=== PATIENT | male | born 1985 | race Caucasian/White ===

== ENCOUNTER 2017-03-11 04:52 | Emergency (ER) | payer OTHER ==
[~2017-03-11] VITALS: Ht 170.2 cm; Wt 66.0 kg
[2017-03-11 05:00] VITALS: BP 142/100; PULSE 123; RESP 18; TEMP 98.3; O2SAT 98
--- NOTE | 2017-03-11 05:18 | PD ---
HPI Chief Complaint: Medical Clearance Time Seen by Provider: 05:10 Travel History International Travel<30 days: No Contact w/Intl Traveler<30days: No Traveled to known affect area: No History of Present Illness HPI The patient is a 31-year-old male who presents to the emergency department via police as a Jorge A's act. The patient states he was at home with the incident port [place], [place], earlier today drinking alcohol. The patient then went to [facility] across the street and was drinking white Russians. The patient then apparently blacked out and was found intoxicated and sleeping outside. The patient initially told police that he thought he was in [place], [place]. The patient states he was in [place], [place] 3 days ago. He is currently staying with family in the local area. He denies any physical complaints. He denies any illicit drug use. Symptoms are mild, exacerbated after drinking alcohol, and there are no current alleviating factors. PFSH Past Medical History Medical History: Denies Significant Hx Diminished Hearing: No Tetanus Vaccination: Unknown Influenza Vaccination: No Past Surgical History Surgical History: No Previous Surgery Social History Alcohol Use: Yes (OCCASSIONALLY) Tobacco Use: Yes (1 PPD) Substance Use: No (HX MARIJUANA) Allergies-Medications (Allergen,Severity, Reaction): Coded Allergies: No Known Allergies (Verified , 03/11/17) Reported Meds & Prescriptions Reported Meds & Active Scripts Active No Active Prescriptions or Reported Medications Review of Systems Except as stated in HPI: all other systems reviewed are Neg Psychiatric: Positive: Substance Abuse (alcohol intoxication tonight) Physical Exam Narrative GENERAL: Awake, alert, nontoxic-appearing 31-year-old male appears his stated age and is in no acute respiratory distress. SKIN: Focused skin assessment warm/dry. HEAD: Atraumatic. Normocephalic. EYES: Pupils equal and round. Pupils are 4 mm bilateral. Mild injection. ENT: No nasal bleeding or discharge. Mucous membranes pink and moist. NECK: Trachea midline. No JVD. CARDIOVASCULAR: Regular, tachycardic with a heart rate over 5. RESPIRATORY: No accessory muscle use. Clear to auscultation. Breath sounds equal bilaterally. GASTROINTESTINAL: Abdomen soft, non-tender, nondistended. MUSCULOSKELETAL: No obvious deformities. No clubbing. No cyanosis. No edema. NEUROLOGICAL: Awake and alert. No obvious cranial nerve deficits. Motor grossly within normal limits. Normal speech. Patient is oriented to person, place, month, year, current location, and financial services officer. PSYCHIATRIC: Appropriate mood and affect; insight and judgment normal. Data Data Last Documented VS Vital Signs Date Time Temp Pulse Resp B/P (MAP) Pulse Ox O2 Delivery O2 Flow Rate FiO2 03/11/17 05:00 98.3 123 18 142/100 (114) 98 Orders Orders Alcohol (Ethanol) (03/11/17 05:14) Labs Laboratory Tests Test 03/11/17 05:25 Ethyl Alcohol Level 277 MG/DL MDM Medical Decision Making Medical Screen Exam Complete: Yes Emergency Medical Condition: Yes Medical Record Reviewed: Yes Interpretation(s) Laboratory Tests Test 03/11/17 05:25 Ethyl Alcohol Level 277 MG/DL Differential Diagnosis Differential diagnosis includes alcohol intoxication, substance ingestion, alcohol abuse. Narrative Course Alcohol level was sent to lab. The patient was monitored in the emergency department. The patient's blood alcohol level was 277. The patient is ambulatory, he will be discharged when he has a safe ride and disposition home. Diagnosis Primary Impression: Acute alcohol intoxication Qualified Codes: F10.929 - Alcohol use, unspecified with intoxication, unspecified Patient Instructions: General Instructions Additional Instructions: Monitor alcohol intake. Follow-up with a primary physician. Return if symptoms worsen or progress. Med/Other Pt SpecificInfo: No Change to Meds Scripts No Active Prescriptions or Reported Meds Disposition: 01 DISCHARGE HOME Condition: Stable Gato Montenegro MD Mar 11, 2017 05:18
== END 2017-03-11 06:50 | disposition home or self-care (01) ==
LOC: NEPE 04:52
DX: F10.129 Alcohol abuse with intoxication, unspecified (principal); F17.210 Nicotine dependence, cigarettes, uncomplicated; Y90.8 Blood alcohol level of 240 mg/100 ml or more
CPT/HCPCS: 80307; 99283